=== PATIENT | male | born 1975 | race Caucasian/White ===

== ENCOUNTER → 2019-10-09 | Outpatient (CLI) | payer OTHER ==
--- NOTE | 2019-10-09 10:16 | RAD ---
EXAM: Abdomen and pelvis CT without intravenous contrast. HISTORY: Left lower quadrant pain. TECHNIQUE: Computed tomographic images of the abdomen and pelvis were obtained without contrast. Multiplanar reformatting was performed. *One or more of the following individualized dose reduction techniques were utilized for this examination: 1. Automated exposure control. 2. Adjustment of the mA and/or kV according to patient size. 3. Use of iterative reconstruction technique. COMPARISON: None. FINDINGS: Evaluation of the lower thorax is unremarkable. No hepatic lesion is seen. The gallbladder, pancreas, adrenal glands and kidneys are unremarkable. There are splenic granulomas. The spleen is normal in size. There is no appendicitis. There is no bowel obstruction. There is distal colonic diverticulosis. There is segmental wall thickening with surrounding stranding and trace fluid involving the distal descending colon, consistent with acute diverticulitis. No drainable fluid collection or free air is seen. The bladder is unremarkable. There is no aortic aneurysm. There is no lymphadenopathy. There is no suspicious osseous lesion. IMPRESSION: Acute diverticulitis involving the distal descending colon. No drainable fluid collection is seen. Electronically signed by: Mirtha Michael MD (10/09/2019 10:13 AM) [place] [id number]
== END | disposition home or self-care (01) ==
LOC: PMG 09:46
PROVIDERS: ATTEND Physician Assistant Medical
DX: K57.32 Diverticulitis of large intestine without perforation or abscess without bleeding (principal); K57.30 Diverticulosis of large intestine without perforation or abscess without bleeding
CPT/HCPCS: 74176

== ENCOUNTER 2020-08-16 22:28 | Emergency (ER) | payer OTHER ==
[~2020-08-16] VITALS: Ht 182.9 cm; Wt 119.3 kg
[2020-08-16] MEDS ORDERED: IV RINGERS SOLUTION,LACTATED 1,000 ML IV SCH (22:45)
[2020-08-16] MEDS ORDERED: ONDANSETRON PF 4 MG/2 ML VIAL. IVP ONE (22:45)
[2020-08-16] MEDS ORDERED: KETOROLAC 30 MG/ML VIAL. IVP ONE (22:45)
[2020-08-16] MEDS ORDERED: FAMOTIDINE 20 MG/2 ML VIAL IVP ONE (22:45)
--- NOTE | 2020-08-16 22:56 | RAD ---
Three-view acute abdominal series. HISTORY: Abdominal pain, short of air, weakness 3 views were taken for an acute abdominal series. Heart is normal in size. There is no pleural effusi on. There are no confluent infiltrates. There is no free air on the upright view the abdomen or abnor mal air-fluid levels. There is no bowel obstruction. There is mild stool in the colon. There are no a bnormal calcifications. IMPRESSION: 1. No acute infiltrates. 2. No bowel obstruction or acute finding in the abdomen. Electronically signed by: Anish Tucker MD (08/16/2020 10:54 PM) [facility]
--- NOTE | 2020-08-16 23:15 | EKG ---
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
--- NOTE | 2020-08-16 23:38 | PHYS DOC ---
General Adult EDM: Chief Complaint: ABDOMINAL PAIN HPI: HPI: " I have some lower abdomen pain.. it was higher .. I thought it was my diverticulitis ..but now I got blood in my urine... " Patient is a 44 year old male who presents with above hx and complaints of lower abdomen pain. Pt. recently taken a course antibiotic of recurrent diverticulitis. Pt. also has hx of renal stones. Pt.reports hematurria tonight. Patient has had previous colon polyps last colonoscopy approximately 3 years ago when one polyp was removed. Patient denies any intake bad food. Has had normal stools. No recent trauma. No recent travel. Normally follows Dr. Espino. Review of Systems: Review of Systems: Constitutional: Denies fever or chills Eyes: Denies change in visual acuity HENT: Denies nasal congestion or sore throat Respiratory: Denies cough or shortness of breath Cardiovascular: Denies chest pain or edema GI: Complains of abdominal pain, and hematuria : Denies dysuria Musculoskeletal: Denies back pain or joint pain Integument: Denies rash Neurologic: Denies headache, focal weakness or sensory changes Endocrine: Denies polyuria or polydipsia Lymphatic: Denies swollen glands Psychiatric: Denies depression or anxiety Family History: Family History: There is a family history of colon cancer Current Medications: Current Meds: Current Medications Medications (Trade) Dose Ordered Sig/Ariel Start Time Stop Time Status Last Admin Dose Admin Famotidine (Pepcid Vial) 20 mg 1X ONCE 08/16/20 22:45 08/16/20 23:21 DC Ketorolac Tromethamine (Toradol 30mg Vial) 30 mg 1X ONCE 08/16/20 22:45 08/16/20 23:21 DC Lactated Ringer's 1,000 ml @ 1,000 mls/hr Q1H 08/16/20 22:45 08/16/20 23:44 Ondansetron HCl (Zofran) 8 mg 1X ONCE 08/16/20 22:45 08/16/20 23:21 DC Allergies: Allergies: Allergies Coded Allergies Type Severity Reaction Last Updated Verified No Known Drug Allergies 08/16/20 No Physical Exam: PE: Constitutional: Moderate acute distress, non-toxic appearance. [] HENT: Normocephalic, atraumatic, bilateral external ears normal, oropharynx moist, no oral exudates, nose normal. [] Eyes: PERRLA, EOMI, conjunctiva normal, no discharge. [] Neck: Normal range of motion, no tenderness, supple, no stridor. [] Cardiovascular:Heart rate regular rhythm, no murmur [] Lungs & Thorax: Bilateral breath sounds equal apex on auscultation [] Abdomen: Bowel sounds decreased, soft, suprapubic tenderness, no masses, no pulsatile masses. [] Skin: Warm, dry, no erythema, no rash. [] Back: No tenderness, no CVA tenderness. [] Extremities: No tenderness, no cyanosis, no clubbing, ROM intact, no edema. No true psoas. No cording. Neurologic: Alert and oriented X 3, normal motor function, normal sensory function, no focal deficits noted. [] Psychologic: Affect anxious, judgement normal, mood normal. [] EKG: EKG: My interpretation EKG shows a sinus rhythm at 86 bpm. No finding of acute STEMI of contralateral changes. Does have premature complexes which appear to be atrial in origin. [] Radiology/Procedures: Radiology/Procedures: [][place] [address] IMAGING REPORT Signed PATIENT: SID DICKINSON ACCOUNT: [id number] : 1975 LOCATION: ER AGE: 44 SEX: M EXAM STATUS: REG ER ORD. PHYSICIAN: VINICIUS KNOX MD REASON: Lower pelvic pain, hematuria Hx of renal stones PROCEDURE: CT ABDOMEN PELVIS WO CONTRAST EXAMINATION: CT ABDOMEN+PELVIS WO CLINICAL HISTORY: Lower pelvic pain, hematuria. Hx of renal stones TECHNIQUE: Non-IV contrast imaging of the abdomen and pelvis was performed using standard technique, scanning from just above the dome of the diaphragm to the symphysis pubis. Unenhanced imaging is limited for the evaluation of some intra-abdominal and pelvic pathology. CT Dose Reduction Employed: One or more of the following individualized dose reduction techniques were utilized for this examination: 1. Automated exposure control 2. Adjustment of the mA and/or kV according to patient size 3. Use of iterative reconstruction technique. COMPARISON: 10/09/2019 FINDINGS: Visualized heart and lungs unremarkable. Old calcified splenic granulomas. Liver, gallbladder, pancreas, adrenal glands, and kidneys unremarkable. Minimally filled urinary bladder suboptimally evaluated. Nonenlarged prostate. Sigmoid diverticulosis with marked marked wall thickening and pericolonic stranding and edema in the mid to distal sigmoid colon, compatible with diverticulitis. No organized pericolonic fluid collection. No dilated bowel. Normal appendix. Arterial atherosclerotic calcification without aneurysm. No evidence of acute osseous abnormality. IMPRESSION: Acute uncomplicated sigmoid diverticulitis. Electronically signed by: Nikolai Maldonado DO (08/16/2020 11:40 PM) [facility] DICTATED AND SIGNED BY: NIKOLAI MALDONADO DO DATE: 08/16/20 2673 CC: VINICIUS KNOX MD; EMELI ESPINO MD ~MTH0 0 Heart Score: C/O Chest Pain: N/A HEART Score for Chest Pain: HEART Score for Chest Pain Response (Comments) Value History Slighlty/Non-Suspicious 0 ECG Normal 0 Age < 45 0 Risk Factors No Risk Factors 0 Troponin < Normal Limit 0 Total 0 Risk Factors: Risk Factors: DM, Current or recent (<one month) smoker, HTN, HLP, family history of CAD, obesity. Risk Scores: Score 0 - 3: 2.5% MACE over next 6 weeks - Discharge Home Score 4 - 6: 20.3% MACE over next 6 weeks - Admit for Clinical Observation Score 7 - 10: 72.7% MACE over next 6 weeks - Early Invasive Strategies Course & Med Decision Making: Course & Med Decision Making Pertinent Labs and Imaging studies reviewed. (See chart for details) Pt. to take Keflex 500 and Flagyl 500 three times a day. Tylenol and Ibuprofen for pain. Clear fluid diet x 48 hrs. Consider Colon scopic evaluation when over this acute episode. If recurrent episodes sometime need surgical correction of diverticulitis. ( Unable to print transfer Rx.for Vicoprofen- call to [facility]. seasoner never called back. ) Impression: 1. Abdomen Pain 2. Diverticulitis 3. Hx. Hematuria [] Dragon Disclaimer: [place] Disclaimer: This electronic medical record was generated, in whole or in part, using a voice recognition dictation system. Departure Departure: Referrals: EMELI ESPINO MD (PCP) Scripts Metronidazole (FLAGYL) 500 Mg Tablet 500 MG PO TID for diverticulitis for 10 Days, #30 TAB Prov: VINICIUS KNOX MD 08/17/20 Cephalexin (KEFLEX) 750 Mg Capsule 500 MG PO TID for diverticvulitis for 10 Days, #21 CAP Prov: VINICIUS KNOX MD 08/17/20 VINICIUS KNOX MD Aug 16, 2020 23:38
--- NOTE | 2020-08-16 23:42 | RAD ---
EXAMINATION: CT ABDOMEN+PELVIS WO CLINICAL HISTORY: Lower pelvic pain, hematuria. Hx of renal stones TECHNIQUE: Non-IV contrast imaging of the abdomen and pelvis was performed using standard technique, scanning from just above the dome of the diaphragm to the symphysis pubis. Unenhanced imaging is cifuentes ited for the evaluation of some intra-abdominal and pelvic pathology. CT Dose Reduction Employed: One or more of the following individualized dose reduction techniques wer e utilized for this examination: 1. Automated exposure control 2. Adjustment of the mA and/or kV ac cording to patient size 3. Use of iterative reconstruction technique. COMPARISON: 10/09/2019 FINDINGS: Visualized heart and lungs unremarkable. Old calcified splenic granulomas. Liver, gallbladder, pancreas, adrenal glands, and kidneys unremarka ble. Minimally filled urinary bladder suboptimally evaluated. Nonenlarged prostate. Sigmoid diverticulosis with marked marked wall thickening and pericolonic stranding and edema in the mid to distal sigmoid colon, compatible with diverticulitis. No organized pericolonic fluid collectio n. No dilated bowel. Normal appendix. Arterial atherosclerotic calcification without aneurysm. No evidence of acute osseous abnormality. IMPRESSION: Acute uncomplicated sigmoid diverticulitis. Electronically signed by: Nikolai Ortiz DO (08/16/2020 11:40 PM) [facility]
[2020-08-16 23:49] LABS: BASO # 0.1 x10^3/uL (0.0-0.2); BASO % 0 % (0-3); EOS # 0.5 x10^3/uL (0.0-0.7); EOS % 3 % (0-3); HEMATOCRIT 46.2 % (39.0-53.0); HEMOGLOBIN 15.6 g/dL (13.0-17.5); LYMPH # 2.6 x10^3/uL (1.0-4.8); LYMPH % 14 % (24-48); MEAN CORPUSCULAR HEMOGLOBIN 30 pg (25-35); MEAN CORPUSCULAR HGB CONC 34 g/dL (31-37); MEAN CORPUSCULAR VOLUME 89 fL (79-100); MONO # 1.4 x10^3/uL (0.0-1.1); MONO % 8 % (0-9); NEUT # 13.5 x10^3uL (1.8-7.7); NEUT % 75 % (31-73); PLATELET COUNT 301 x10^3/uL (140-400); RED BLOOD COUNT 5.17 x10^6/uL (4.30-5.70); RED CELL DISTRIBUTION WIDTH 12.6 % (11.5-14.5); WHITE BLOOD COUNT 18.1 x10^3/uL (4.0-11.0)
[2020-08-16 23:55] LABS: ALBUMIN 3.8 g/dL (3.4-5.0); CALCIUM 8.7 mg/dL (8.5-10.1); CREATININE 1.1 mg/dL (0.7-1.3); DIRECT BILIRUBIN 0.1 mg/dL (0.0-0.2); GFR 72.4; POTASSIUM 3.6 mmol/L (3.5-5.1); TOTAL BILIRUBIN 0.3 mg/dL (0.2-1.0); TOTAL PROTEIN 7.6 g/dL (6.4-8.2)
[2020-08-17] LABS: BILIRUBIN,URINE NEG (NEG); CLARITY,URINE CLEAR; COLOR,URINE AMBER; GLUCOSE,URINE 100 mg/dL (NEG)
[2020-08-17 00:01] LABS: BACTERIA,URINE FEW /HPF (0-FEW); NITRITE,URINE POS (NEG); RBC,URINE OCC /HPF (0-2); SQUAMOUS EPITHELIAL CELL,UR OCC /LPF; WBC,URINE 0 /HPF (0-4)
[2020-08-17 00:29] LABS: % ATYL 1 % (0-0); % BANDS 3 % (0-9); % LYMPHS 18 % (24-48); % MONOS 8 % (0-10); % SEGS 70 % (35-66); PLT ESTIMATE ADEQUATE (ADEQUATE)
[2020-08-17] MEDS ORDERED: cefTRIAXone SODIUM 1 GM VIAL ONE (01:27)
[2020-08-17] MEDS ORDERED: IV NORMAL SALINE 50ML 50 ML ONE (01:27)
[2020-08-17 01:29] VITALS: BP 124/90
[2020-08-17] MEDS ORDERED: METR500T PO (01:30)
[2020-08-17] MEDS ORDERED: CEPH750C9 PO (01:30)
[2020-08-17] MEDS ORDERED: HYDR-1179 PO ×2 (01:33→01:38)
== END 2020-08-17 02:34 | disposition home or self-care (01) ==
LOC: ER 22:28
DX: K57.32 Diverticulitis of large intestine without perforation or abscess without bleeding (principal); R31.9 Hematuria, unspecified
CPT/HCPCS: 36415; 74022; 74176; 80048; 80076; 81001; 82150; 82550; 83690; 84484; 85007; 85025; 87040; 87086; 93005; 96361; 96365; 96368; 96375; 99285; J0696; J1885; J3490; J7120

== ENCOUNTER 2020-11-29 17:47 | Emergency (ER) | payer OTHER ==
[~2020-11-29] VITALS: Ht 182.9 cm; Wt 116.2 kg
[~2020-11-29 17:47] MED LIST: CEPH750C9 PO; HYDR-1179 PO; METR500T PO
--- NOTE | 2020-11-29 18:19 | PHYS DOC ---
Past History Past Medical History: Diverticulitis Past Surgical History: Other Additional Past Surgical Histo: colectomy; left arm surgery Alcohol Use: Rarely Adult General Chief Complaint Chief Complaint: ABDOMINAL PAIN HPI HPI Patient is a 45-year-old male with a past medical history significant for recent diverticulitis status post colectomy approximately a month ago who presents to the emergency department with a chief complaint of right-sided abdominal pain, 8 out of 10, sharp in nature which started today, with nausea but no vomiting, decreased appetite and noticed some bright red blood when wiping his stool 3 days ago which has stopped. States he called his surgeon and was directed to the emergency department. Denies any recent other traumas, fevers, chest pain, shortness of breath, dysuria, hematuria, diarrhea. Review of Systems Review of Systems Review of systems otherwise unremarkable except noted in HPI Allergies Allergies Allergies Coded Allergies Type Severity Reaction Last Updated Verified No Known Drug Allergies 11/29/20 No Physical Exam Physical Exam Constitutional: Well developed, well nourished, no acute distress, non-toxic appearance. [] HENT: Normocephalic, atraumatic, bilateral external ears normal, oropharynx moist, no oral exudates, nose normal. [] Eyes: , conjunctiva normal, no discharge. [] Neck: Normal range of motion, no tenderness, supple, no stridor. [] Cardiovascular:Heart rate regular rhythm, no murmur [] Lungs & Thorax: Bilateral breath sounds clear to auscultation [] Abdomen: soft, generalized tenderness, worse on the right with no rebound or guarding, approximately 10 cm surgical scar, clean, dry and intact with no signs of superficial infection, no masses, no pulsatile masses. [] Skin: Warm, dry, no erythema, no rash. [] Back: no CVA tenderness. [] Extremities: No tenderness, no cyanosis, no clubbing, ROM intact, no edema. [] Neurologic: Alert and oriented X 3, normal motor function, normal sensory function, no focal deficits noted. [] Psychologic: Affect normal, judgement normal, mood normal. [] Current Patient Data Vital Signs Vital Signs Date Time Temp Pulse Resp B/P (MAP) Pulse Ox O2 Delivery O2 Flow Rate FiO2 11/29/20 17:55 98.5 77 18 146/85 (105) 97 Room Air EKG EKG [] Radiology/Procedures Radiology/Procedures [] INDICATION: Reason: S/P colectomy / Spl. Instructions: / History: Abdomen pain COMPARISON: August 16, 2020 TECHNIQUE: Axial CT images were obtained through the abdomen and pelvis with intravenous contrast. One or more of the following individualized dose reduction techniques were utilized for this examination: 1. Automated exposure control; 2. Adjustment of the mA and/or kV according to patient size; 3. Use of iterative reconstruction technique. FINDINGS: Vascular: Calcific atherosclerosis. Hepatobiliary: No intrahepatic biliary duct dilation. Pancreas: No peripancreatic edema. Spleen: Calcified granulomas. Renal/Bladder: Urinary bladder has minimal urine within it at time of exam. No hydronephrosis. Gastrointestinal: Wall thickening of the sigmoid colon is again seen with some adjacent edema to the fat. Appendix measures approximately 6 mm without definite adjacent inflammatory changes. No dilated loops of bowel to suggest obstruction. There is some edema at the anterior abdominal wall on the left with a small amount of fluid at the musculature. Could be postoperative in nature. Degenerative changes spine. IMPRESSION: * Wall thickening of the sigmoid colon with adjacent edema to the fat. Could be from diverticulitis. Would obtain a follow-up to ensure this appropriately resolves to exclude a colon mass. * Subcutaneous edema anterior abdominal wall in the left with some fluid seen at the musculature of the abdominal wall. Could be postoperative in nature if the patient has a history of surgery at this site Electronically signed by: Paul Duran MD (11/29/2020 8:41 PM) [id number] Heart Score C/O Chest Pain: No Risk Factors: Risk Factors: DM, Current or recent (<one month) smoker, HTN, HLP, family history of CAD, obesity. Risk Scores: Risk Factors: DM, Current or recent (<one month) smoker, HTN, HLP, family history of CAD, obesity. Course & Med Decision Making Course & Med Decision Making Patient is a 45-year-old male status post 4 weeks colectomy secondary to d iverticulitis who presents to the emergency department at the advice of his surgeon for right-sided abdominal pain Vital signs not concerning. Physical exam noted above. Patient placed on monitor with IV access established. Made n.p.o. Given nausea and pain medicine. Laboratory analysis notable for leukocytosis. CT notable for swelling, edema and possible diverticulitis with sigmoid. Made n.p.o., started on IV antibiotics. Kept fluid resuscitation going. Ruth patient with Dr. Ramírez his surgeon who requested that he be transferred to [place] for continued evaluation and treatment. Discussed findings with family who agreed with plan of transfer and admission. Dragon Disclaimer Dragon Disclaimer This electronic medical record was generated, in whole or in part, using a voice recognition dictation system. Departure Departure: Impression: Primary Impression: Abdominal pain Additional Impressions: Nausea Diverticulitis Disposition: 02 SHORT TERM HOSPITAL Admitting Physician: Other Condition: STABLE Referrals: EMELI LOREDO MD (PCP) Problem Qualifiers CELINA CAMERON MD Nov 29, 2020 18:19
[2020-11-29] MEDS ORDERED: ONDANSETRON PF 4 MG/2 ML VIAL. ONE (18:22)
[2020-11-29] MEDS ORDERED: MORPHINE SULFATE 4 MG/ML DISP.SYRIN. ONE ×2 (18:22→22:40)
[2020-11-29] MEDS ORDERED: IOHEXOL 300 MG/ML 75 ML VIAL. IV ONE (18:30)
[2020-11-29] MEDS ORDERED: MORPHINE SULFATE 4 MG/ML DISP.SYRIN. IV ONE ×2 (18:30→23:00)
[2020-11-29] MEDS ORDERED: IV RINGERS SOLUTION,LACTATED 1,000 ML IV ONE (18:30)
[2020-11-29] MEDS ORDERED: ONDANSETRON PF 4 MG/2 ML VIAL. IVP ONE (18:30)
[2020-11-29 18:38] LABS: BASO # 0.1 x10^3/uL (0.0-0.2); BASO % 1 % (0-3); EOS # 0.4 x10^3/uL (0.0-0.7); EOS % 3 % (0-3); HEMATOCRIT 46.5 % (39.0-53.0); HEMOGLOBIN 15.8 g/dL (13.0-17.5); LYMPH % 30 % (24-48); MEAN CORPUSCULAR HEMOGLOBIN 30 pg (25-35); MEAN CORPUSCULAR HGB CONC 34 g/dL (31-37); MEAN CORPUSCULAR VOLUME 89 fL (79-100); MONO # 1.4 x10^3/uL (0.0-1.1); MONO % 10 % (0-9); NEUT # 7.6 x10^3uL (1.8-7.7); NEUT % 56 % (31-73); PLATELET COUNT 282 x10^3/uL (140-400); RED BLOOD COUNT 5.25 x10^6/uL (4.30-5.70); RED CELL DISTRIBUTION WIDTH 13.1 % (11.5-14.5); WHITE BLOOD COUNT 13.4 x10^3/uL (4.0-11.0)
[2020-11-29 18:48] LABS: CALCIUM 9.1 mg/dL (8.5-10.1); CREATININE 0.8 mg/dL (0.7-1.3); GFR 104.1; POTASSIUM 4.1 mmol/L (3.5-5.1)
[2020-11-29 19:02] LABS: ALBUMIN/GLOBULIN RATIO 1.1 (1.0-1.7); MAGNESIUM 2.2 mg/dL (1.8-2.4); TOTAL BILIRUBIN 0.3 mg/dL (0.2-1.0); TOTAL PROTEIN 7.6 g/dL (6.4-8.2)
[2020-11-29 20:21] VITALS: BP 96/59
[2020-11-29 20:35] LABS: BACTERIA,URINE 0 /HPF (0-FEW); BILIRUBIN,URINE NEG (NEG); CLARITY,URINE CLEAR; COLOR,URINE YELLOW; GLUCOSE,URINE NEG (NEG); NITRITE,URINE NEG (NEG); SQUAMOUS EPITHELIAL CELL,UR OCC /LPF; UROBILINOGEN,URINE 0.2 mg/dL (0.2 mg/dL); WBC,URINE OCC /HPF (0-4)
--- NOTE | 2020-11-29 20:43 | RAD ---
INDICATION: Reason: S/P colectomy / Spl. Instructions: / History: Abdomen pain COMPARISON: August 16, 2020 TECHNIQUE: Axial CT images were obtained through the abdomen and pelvis with intravenous contrast. One or more of the following individualized dose reduction techniques were utilized for this examinat ion: 1. Automated exposure control; 2. Adjustment of the mA and/or kV according to patient size; 3 . Use of iterative reconstruction technique. FINDINGS: Vascular: Calcific atherosclerosis. Hepatobiliary: No intrahepatic biliary duct dilation. Pancreas: No peripancreatic edema. Spleen: Calcified granulomas. Renal/Bladder: Urinary bladder has minimal urine within it at time of exam. No hydronephrosis. Gastrointestinal: Wall thickening of the sigmoid colon is again seen with some adjacent edema to the fat. Appendix measures approximately 6 mm without definite adjacent inflammatory changes. No dilated loops of bowel to suggest obstruction. There is some edema at the anterior abdominal wall on the left with a small amount of fluid at the musculature. Could be postoperative in nature. Degenerative changes spine. IMPRESSION: * Wall thickening of the sigmoid colon with adjacent edema to the fat. Could be from diverticulitis . Would obtain a follow-up to ensure this appropriately resolves to exclude a colon mass. * Subcutaneous edema anterior abdominal wall in the left with some fluid seen at the musculature of the abdominal wall. Could be postoperative in nature if the patient has a history of surgery at this site Electronically signed by: Paul Duran MD (11/29/2020 8:41 PM) [id number]
[2020-11-29] MEDS ORDERED: IV NORMAL SALINE 50ML 50 ML ONE (21:48)
[2020-11-29] MEDS ORDERED: PIPERACILLIN/TAZOBACTAM 4.5 GM VIAL IV ONE (21:48)
[2020-11-29] MEDS ORDERED: PIPERACILLIN/TAZOBACTAM 4.5 GM in IV NORMAL SALINE 50ML 50 ML IV ONE (22:00)
--- NOTE | 2020-11-29 23:30 | EKG ---
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
--- NOTE | 2020-11-29 23:57 | RAD ---
INDICATION: Reason: cardiac w/u / Spl. Instructions: / History: COMPARISON: July 2020 FINDINGS: Single view of chest obtained. Cardiomediastinal silhouette is similar to prior. Repeat demonstration of mild interstitial opacities bilaterally. No new consolidation IMPRESSION: * Mild interstitial opacities bilaterally similar prior. This may be the patient's baseline appearan ce from interstitial lung disease but would correlate with symptoms to ensure there is not a superimp osed mild edema or interstitial infiltrate contributing to this appearance. Electronically signed by: Paul Duran MD (11/29/2020 11:55 PM) [id number]
== END 2020-11-29 23:33 | disposition short-term general hospital (02) ==
LOC: ER 17:47
DX: K57.92 Diverticulitis of intestine, part unspecified, without perforation or abscess without bleeding (principal); R10.84 Generalized abdominal pain; Z90.49 Acquired absence of other specified parts of digestive tract; Z20.822 Contact with and (suspected) exposure to COVID-19
CPT/HCPCS: 71045; 74177; 80053; 81001; 83605; 83690; 83735; 84484; 85025; 87426; 93005; 96361; 96365; 96375; 96376; 99285; C9803; J2270; J2405; J2543; J7120; Q9967; U0003